=== PATIENT | male | born 1975 | race Caucasian/White ===

== ENCOUNTER → 2018-11-13 | Outpatient (CLI) | payer BC ==
--- NOTE | 2018-11-13 08:43 | KCIC ---
EXAM: Abdomen sonogram. HISTORY: Pain. TECHNIQUE: Sonographic imaging of the abdomen was performed. COMPARISON: 04/30/2007. FINDINGS: The liver is normal in size. No focal hepatic lesion is seen. The common bile duct is normal in caliber. The gallbladder is unremarkable. The kidneys and spleen are unremarkable. The pancreas is partially obscured due to bowel gas. The aorta is normal in caliber. The inferior vena cava is patent. IMPRESSION: Unremarkable abdomen sonogram, with limited evaluation of the pancreas due to bowel gas. Electronically signed by: Beatriz Payne MD (11/13/2018 8:41 AM) [facility]
== END | disposition home or self-care (01) ==
LOC: KCIC US 07:58
PROVIDERS: ATTEND Family Medicine
DX: R10.9 Unspecified abdominal pain (principal)
CPT/HCPCS: 76700

== ENCOUNTER → 2018-11-21 | Outpatient (CLI) | payer BC ==
[~2018-11-21] VITALS: Ht 185.4 cm; Wt 79.4 kg
[~2018-11-21] MED LIST: SINCALIDE 1.59 MCG in IV NORMAL SALINE 50ML 30 ML IV ONE
--- NOTE | 2018-11-21 11:34 | RAD ---
Examination: NM HEPATOBILIARY SCAN W PHARM History: right upper quandrant pain since 2006. 5.5mCi Tc99m Choletec and 1.59mcg CCK given IV over 30 minutes Comparison/Correlation: None Findings: 5.5 mCi mebrofenin was administered intravenously for purposes of hepatobiliary scintigraphy. Uptake of radiotracer by liver is normal. No biliary dilatation. Gallbladder is visualized at 6 minutes. Radiotracer is within small bowel by 45 minutes. After 60 minutes, 1.59 mcg CCK was administered. Gallbladder ejection fraction at 27.5 minutes is 82 percent. Impression: Normal hepatobiliary scintigraphy examination. No acute or chronic cholecystitis. Radiotracer is within small bowel at approximate 45 minutes. Electronically signed by: Ronak Alonso MD (11/21/2018 11:31 AM) [facility]
== END | disposition home or self-care (01) ==
LOC: NM 07:38
PROVIDERS: ATTEND Surgery
DX: R10.11 Right upper quadrant pain (principal)
CPT/HCPCS: 78227; A9537; J2805